=== PATIENT | male | born 1970 | race Two or more races ===

== ENCOUNTER 2021-12-01 19:02 | Emergency (ER) | payer SELFPAY ==
[~2021-12-01] VITALS: Ht 175.3 cm; Wt 79.4 kg
[2021-12-01 19:02] VITALS: BP 115/80
== END 2021-12-01 21:30 | disposition home or self-care (01) ==
LOC: ER 19:02
DX: F22 Delusional disorders (principal); F12.10 Cannabis abuse, uncomplicated

== ENCOUNTER 2022-11-11 13:57 | Emergency (ER) | payer MEDICAID ==
[~2022-11-11] VITALS: Ht 175.3 cm; Wt 81.3 kg
[2022-11-11] MEDS ORDERED: ONDANSETRON ODT 4 MG TAB PO ONE (14:30)
[2022-11-11 14:46] LABS: Basophils # (auto) 0.1 10 ^3/uL (0-0.2); Basophils % (auto) 0.7 % (0.0-2.0); Eosinophils # (auto) 0.1 10 ^3/uL (0-0.8); Eosinophils % (auto) 1.9 % (0.0-7.0); Hematocrit 41.5 % (41.0-53.0); Hemoglobin 14.2 g/dL (13.5-17.5); Lymphocytes # (auto) 1.9 10 ^3/uL (0.4-5.4); Lymphocytes % (auto) 25.2 % (10.0-50.0); Mean Corpuscular Hemoglobin 30.8 pg (28.0-32.0); Mean Corpuscular Hgb Conc. 34.1 g/dL (32.0-36.0); Mean Corpuscular Volume 90.3 fL (80.0-100.0); Monocytes # (auto) 0.5 10 ^3/uL (0-1.3); Neutrophils # (auto) 5.1 10 ^3/uL (1.6-8.6); Neutrophils % (auto) 66.2 % (37.0-80.0); Nucleated Red Blood Cells % 0.1 %; Red Cell Distribution Width 13.9 % (11.8-14.3); White Blood Cell 7.7 10^3/uL (4.4-10.8)
[2022-11-11 14:59] LABS: Albumin 3.5 g/dL (3.4-5.0); Calcium 8.9 mg/dL (8.5-10.1); Potassium 4.3 mmol/L (3.5-5.1)
[2022-11-11 15:03] LABS: BUN/Creatinine Ratio 14.6 (10.0-20.0); Bilirubin, Total 0.3 mg/dL (0.2-1.0); Total Protein 6.4 g/dL (6.4-8.2)
[2022-11-11 15:06] LABS: INR 0.92 (0.9-1.15); Partial Thromboplastin Time 25.7 sec (24.6-33.4)
[2022-11-11 15:25] LABS: Urine Bacteria NONE SEEN /hpf (None Seen); Urine Blood Negative /uL (Negative); Urine WBC 1 /hpf (0 - 3)
[2022-11-11] MEDS ORDERED: CIPR-173 PO (15:59)
[2022-11-11] MEDS ORDERED: ACET-6 PO (15:59)
[2022-11-11] MEDS ORDERED: TAM04C PO (15:59)
[2022-11-11 16:08] VITALS: BP 121/86
== END 2022-11-11 16:13 | disposition home or self-care (01) ==
LOC: ER 13:57
DX: R51.9 Headache, unspecified (principal); N40.0 Benign prostatic hyperplasia without lower urinary tract symptoms; N41.0 Acute prostatitis
CPT/HCPCS: 36415; 70450; 74176; 80053; 81001; 83605; 83690; 84484; 85025; 85610; 85730; 93005; 99284; Q0162